=== PATIENT | male | born 1975 | race Caucasian/White ===

== ENCOUNTER 2025-03-23 06:14 | Day surgery (SDC) | payer OTHER, SELFPAY ==
[2025-03-14 16:18] LABS: Hematocrit 45.4 % (39.0-52.0); Hemoglobin 14.5 g/dL (13.0-18.0); Mean Corp Hgb Conc. 31.9 g/dL (33.0-37.0); Mean Corpuscular Volume 88.3 fL (80.0-94.0); Nucleated Red Blood Cells % 0 % (-); Platelet Count 228 10^3/uL (130-400); Red Cell Dist. Width 13.8 % (11.5-14.5)
[2025-03-14 16:24] LABS: INR 1.86; PT 21.9 Sec (11.4-14.6)
[2025-03-14 16:38] LABS: Blood Urea Nitrogen 16 mg/dl (9-20); Calcium 10.0 mg/dl (8.4-10.2); Carbon Dioxide 28 mmol/L (22-30); Chloride 108 mmol/L (98-107); Glucose 102 mg/dl (70-99); Potassium 4.9 mmol/L (3.5-5.1); Sodium 143 mmol/L (135-145); eGFR > 60.00
--- NOTE | 2025-03-15 11:42 | PTCARENOTE ---
Patients 03/14 INR-1.86- Aliya @ Dr. Peñaloza office notified
[2025-03-23] VITALS (7 sets, daily range): BP systolic 125–144; BP diastolic 86–91; BMI 25.1
[2025-03-23] MEDS: TYLENOL 1000 MG PO (08:11)
[2025-03-23] MEDS: NORMOSOL-R/PLASMALYTE-A 1000 IV (08:11)
== END 2025-03-23 12:25 | disposition home or self-care (01) ==
LOC: SDS 06:14
PROVIDERS: ATTENDING PHYSICIAN Surgery; FAMILY PHYSICIAN Family Medicine
DX: K42.9 Umbilical hernia without obstruction or gangrene (principal)
CPT/HCPCS: 49591; 36415; 80048; 85025; 85610; 93005